=== PATIENT | female | born 2000 | race Caucasian/White ===

== ENCOUNTER 2019-11-15 20:28 | Emergency (ER) | payer OTHER ==
[2019-11-15] MEDS ORDERED: NS 0.9% 1000 ML** 1,000 ML IV ONE (23:54)
[2019-11-15 23:57] LABS: Urine Appearance Turbid; Urine Bilirubin Negative (Negative); Urine Blood Negative (Negative); Urine Color Yellow; Urine Glucose Negative (Negative); Urine Ketones Negative (Negative); Urine Nitrite Negative (Negative); Urine Protein Negative (Negative); Urine Urobilinogen Negative (Negative)
--- NOTE | 2019-11-16 00:03 | ED ---
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 She experienced sharp stomach pains today 11/15/2019 which caused her to come to [facility]. Patient reports lightheadedness, nausea, and vertigo upon waking and has had constipation recently but had a normal bowel movement this morning. Patient denies vaginal bleeding or discharge. She had past appointments with GI doctors that kept getting cancelled. Her last menstrual cycle was 2 weeks ago. No Hx of constipation. No SHx. FHx of cardiac disease. SocHx of infrequent alcohol use. No SocHx of smoking or recreational drugs. The patient rates the pain 7/10 in severity. Symptoms aggravated by nothing. Symptoms alleviated by nothing. - History of Current Complaint Chief Complaint: EDAbdPain Stated Complaint: ABD PAIN PER PT Time Seen by Provider: 11/15/19 23:20 Hx Obtained From: Patient Onset/Duration: Lasting Weeks, Still Present, Worse Since - this morning 2019 Timing: Intermittent Episode Lasting Pain Intensity: 7 Pain Scale Used: 0-10 Numeric Character: Cramping, Other: - and stabbing Alleviating Factor(s): Nothing Associated Signs and Symptoms: Positive: Nausea, Other: - lightheadedness and vertigo Allergies/Adverse Reactions: Allergies Allergy/AdvReac Type Severity Reaction Status Date / Time No Known Allergies Allergy Verified 11/15/19 20:30 PMH/Surg Hx/FS Hx/Imm Hx Endocrine/Hematology History: Denies: Hx Diabetes Cardiovascular History: Denies: Hx Hypertension GI History: Denies: Other GI Disorders - no Hx constipation Infectious Disease History: No Infectious Disease History: Denies: Traveled Outside the [place] in Last 30 Days - Family History Known Family History: Negative: Hypertension, Diabetes - Social History Alcohol Use: Occasionally Substance Use Type: Reports: None Smoking Status (MU): Never Smoked Tobacco Review of Systems Positive: Abdominal Pain - for weeks- stabbing and cramping feeling, Nausea, Other - constipation recently Neurological/Mental Status: Other - lightheadedness and vertigo upon waking 08/2020 All Other Systems Reviewed And Are Negative: Yes Physical Exam - Summary Physical Exam Summary: VITAL SIGNS: Reviewed. GENERAL: Patient is a well-developed and nourished female who is lying comfortable in the stretcher. Patient is not in any acute respiratory distress. HEAD AND FACE: Normocephalic and atraumatic. EYES: PERRLA, EOMI x 2, No injected conjunctiva. EARS: Hearing grossly intact. Ear canals and tympanic membranes are WNL. MOUTH: Oropharynx within normal limits. NECK: Supple, trachea is midline, no adenopathy, no JVD. CHEST: Symmetric, no tenderness at palpation. LUNGS: Clear to auscultation bilaterally. No wheezing or crackles. CVS: RRR, S1 and S2 present, no murmurs or gallops appreciated. ABDOMEN: Abdomen distension, tenderness in lower abdomen with no rebound or guarding, decreasing bowel sounds EXTREMITIES: FROM in all major joints, no edema, no cyanosis or clubbing. NEURO: Alert and oriented x 3. No acute neurological deficits. Speech is normal. SKIN: Dry and warm. Triage Information Reviewed: Yes Vital Signs On Initial Exam: Initial Vitals Temp Pulse Resp BP Pulse Ox 98 F 67 18 132/97 98 11/15/19 20:30 11/15/19 20:30 11/15/19 20:30 11/15/19 20:30 11/15/19 20:30 Vital Signs Reviewed: Yes Procedures - Sedation Patient Received Moderate/Deep Sedation with Procedure: No Diagnostics - Vital Signs Vital Signs Temp Pulse Resp BP Pulse Ox 11/15/19 22:49 98.6 F 80 18 106/75 97 11/15/19 20:30 98 F 67 18 132/97 98 - Laboratory Lab Results: Lab Results 11/15/19 Range/Units 23:47 Urine Color Yellow Urine Appearance Turbid Urine pH 7.0 (5-9) Ur Specific J[place] 1.020 (1.010-1.030) Urine Protein Negative (Negative) Urine Ketones Negative (Negative) Urine Blood Negative (Negative) Urine Nitrate Negative (Negative) Urine Bilirubin Negative (Negative) Urine Urobilinogen Negative (Negative) Ur Leukocyte Esterase 3+ A (Negative) Urine Glucose Negative (Negative) Result Diagrams: 11/15/19 23:57 11/15/19 23:57 Lab Statement: Any lab studies that have been ordered have been reviewed, and results considered in the medical decision making process. - Radiology Abdomen x-ray Radiology Interpretation Completed By: ED Physician Summary of Radiographic Findings: Impression: increase in stool content. Pending official report. 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 She experienced sharp stomach pains today 11/15/2019 which caused her to come to [facility]. Patient reports lightheadedness, nausea, and vertigo upon waking and has had constipation recently but had a normal bowel movement this morning. Patient denies vaginal bleeding or discharge. She had past appointments with GI doctors that kept getting cancelled. Her last menstrual cycle was 2 weeks ago. No Hx of constipation. No SHx. FHx of cardiac disease. SocHx of infrequent alcohol use. No SocHx of smoking or recreational drugs. The patient rates the pain 7/10 in severity. Symptoms aggravated by nothing. Symptoms alleviated by nothing. In the ED course the patient was placed in a manager cardiac cath, IV access was obtained, IV fluids were started. Blood test w/o a significant abnormality except for platelet count of 120. Urinalysis is contaminated. Abdominal x ray: Increase in stool content. Likely secondary to constipation. Patient was given MiraLAX, lactulose, magnesium citrate as well as Zofran. The patient will be discharged home with a following appoirntment with the primary care physician. I discussed all the findings and test results with the patient. Patient was instructed to return to the emergency room immediately if any of the symptoms return worsens. Plan of care was discussed with the patient and understands and agrees. All questions were answered at patient satisfaction. There were no further complaints or concerns. Lung exam before discharge: CTA B/L. Good air exchange. No wheezing or crackles heard. CVS: S1 and S2 present. No murmurs appreciated. Patient is alert and oriented x 3. Patient is hemodynamically stable. Patient will be discharged home with follow up PCP in the next 2-3 days - Diagnoses Provider Diagnoses: Constipation Discharge ED - Sign-Out/Discharge Documenting (check all that apply): Patient Departure - discharge - Discharge Plan Condition: Stable Disposition: HOME Prescriptions: Ondansetron ODT TAB* [Zofran 4 MG Odt TAB*] 4 mg PO Q8H PRN #10 tab.odt PRN Reason: Nausea/Vomiting Polyethylene Glycol 3350* [Miralax (17 GM DOSE JAQUELINE)] 17 gm PO DAILY #12 packet Sodium Phosphate ADULT ENEMA* [Fleet Enema*] 1 enema MS BEDTIME PRN #1 btl PRN Reason: Constipation Patient Education Materials: Constipation (ED) Referrals: [facility] [Outside] Additional Instructions: FOLLOW UP WITH THE [facility] IF YOU DON'T HAVE A PRIMARY CARE PROVIDER WITHIN ONE WEEK. RETURN TO THE ED FOR ANY WORSENING OR NEW SYMPTOMS. - Billing Disposition and Condition Condition: STABLE Disposition: Home - Attestation Statements Document Initiated by Scribe: Yes Documenting Scribe: Delio Chambers Provider For Whom Ilya is Documenting (Include Credential): Dr.Walter Shaji MD Scribe Attestation: I, Delio Chambers, scribed for Dr.Walter Shaji MD on 11/17/19 at 2040. Scribe Documentation Reviewed: Yes Provider Attestation: The documentation as recorded by the Delio pfeiffer accurately reflects the service I personally performed and the decisions made by me, Dr.Walter Shaji MD Status of Scribe Document: Viewed
[2019-11-16 00:04] LABS: Urine Bacteria Absent (Absent); Urine Red Blood Cell Trace(0-2/hpf) (Absent); Urine Squamous Epithelial Cell Present (Absent); Urine White Blood Cell 1+(6-10/hpf) (Absent)
[2019-11-16 00:07] LABS: ABS Monocytes 0.7 10^3/ul (0-0.8); ABS Neutrophils 4.1 10^3/ul (1.5-7.7); Eosinophil % 0.5 %; Hematocrit 42 % (35-47); Hemoglobin 14.2 g/dL (12.0-16.0); Lymphocyte % 38.2 %; Mean Corpuscular HGB Conc 34 g/dL (31-36); Mean Corpuscular Hemoglobin 31 pg (27-31); Mean Corpuscular Volume 90 fL (80-97); Mean Platelet Volume 8.8 fL (7.4-10.4); Nucleated Red Blood Cells % 0.1; Platelet Count 120 10^3/uL (150-450); Red Blood Count 4.63 10^6 /uL (3.70-4.87); Red Cell Distribution Width 13 % (10-15); White Blood Count 7.8 10^3/uL (3.5-10.8)
[2019-11-16 00:43] LABS: ALT 13 U/L (7-52); AST 17 U/L (13-39); Albumin 4.1 g/dL (3.2-5.2); Albumin/Globulin Ratio 1.3 (1-3); Alkaline Phosphatase 40 U/L (34-104); Anion Gap 8 mmol/L (2-11); BUN/Creatinine Ratio 11.8 (8-20); Blood Urea Nitrogen 8 mg/dL (6-24); C Reactive Protein 5.32 mg/L (<8.01); CO2 Carbon Dioxide 26 mmol/L (22-32); Calcium 9.1 mg/dL (8.6-10.3); Chloride 103 mmol/L (101-111); EGFR African American 132.2 (>60); EGFR Non-African American 109.2 (>60); Globulin 3.1 g/dL (2-4); Glucose 87 mg/dL (70-100); Potassium 3.9 mmol/L (3.5-5.0); Sodium 137 mmol/L (135-145); Total Protein 7.2 g/dL (6.4-8.9)
[2019-11-16 00:49] LABS: HCG Pregnancy < 0.60 mIU/mL
[2019-11-16] MEDS: Magnesium CITRATE* 300 ML BTL PO ONE ×2 (01:57→02:07)
[2019-11-16] MEDS: Polyethylene Glycol 3350* 17 GM PACKET PO PRN ×2 (01:57→02:05)
[2019-11-16 02:01] VITALS: BP 115/80
== END 2019-11-16 02:00 | disposition home or self-care (01) ==
LOC: ED 20:28
DX: K59.00 Constipation, unspecified (principal); R10.9 Unspecified abdominal pain; R11.0 Nausea
CPT/HCPCS: 36415; 74019; 80053; 81003; 81015; 83690; 84702; 85025; 86140; 87086; 96360; 99283; A9270-GY